=== PATIENT | male | born 1965 | race Caucasian/White ===

== ENCOUNTER 2016-11-14 12:55 | Outpatient (CLI) | payer OTHER, BC | END 2016-11-14 23:59 | DX: B19.20 Unspecified viral hepatitis C without hepatic coma (principal); Z79.899 Other long term (current) drug therapy; Z12.5 Encounter for screening for malignant neoplasm of prostate; R73.9 Hyperglycemia, unspecified ==

== ENCOUNTER 2016-12-06 09:28 | Day surgery (SDC) | payer OTHER, BC ==
[2016-12-06] MEDS ORDERED: LACTATED RINGERS 1,000 ML IV ONE (10:01)
[2016-12-06] MEDS ORDERED: fentaNYL 250 MCG/5 ML VIAL IVP ONE (11:32)
== END 2016-12-06 09:29 | disposition home or self-care (01) ==
DX: Z12.11 Encounter for screening for malignant neoplasm of colon (principal); K57.30 Diverticulosis of large intestine without perforation or abscess without bleeding; Z87.891 Personal history of nicotine dependence; R35.1 Nocturia; R39.11 Hesitancy of micturition
CPT/HCPCS: 45378; J3010; J7120

== ENCOUNTER 2016-12-07 20:28 | Emergency (ER) | payer OTHER, BC ==
[2016-12-07] MEDS ORDERED: ASPIRIN CHEW 81 MG TABLET ONE (21:20)
[2016-12-07] MEDS ORDERED: ASPIRIN CHEW 81 MG TABLET PO STA ×3 (21:20→21:21)
== END 2016-12-08 00:55 | disposition home or self-care (01) ==
DX: R07.89 Other chest pain (principal); K21.9 Gastro-esophageal reflux disease without esophagitis; G47.30 Sleep apnea, unspecified
CPT/HCPCS: 36415; 71020; 80048; 82550; 82553; 84484; 85025; 93005; 93010; 99284; A9270

== ENCOUNTER 2017-01-07 08:55 | Outpatient (CLI) | payer OTHER, BC | END 2017-01-07 08:56 | disposition home or self-care (01) | DX: Z53.9 Procedure and treatment not carried out, unspecified reason (principal) ==

== ENCOUNTER 2017-01-21 07:58 | Outpatient (CLI) | payer OTHER, BC | END 2017-01-21 07:59 | disposition home or self-care (01) | DX: K76.0 Fatty (change of) liver, not elsewhere classified (principal); B19.20 Unspecified viral hepatitis C without hepatic coma ==

== ENCOUNTER 2017-01-24 10:39 | Day surgery (SDC) | payer OTHER, BC ==
[2017-01-24] MEDS ORDERED: LACTATED RINGERS 1,000 ML IV ONE (10:48)
[2017-01-24] MEDS ORDERED: LIDO GARGLE 30 ML BOTTLE PO ONE (12:08)
[2017-01-24] MEDS ORDERED: MIDAZOLAM 2 MG/2 ML VIAL IVP ONE (12:10)
[2017-01-24] MEDS ORDERED: fentaNYL 250 MCG/5 ML VIAL IVP ONE (12:10)
== END 2017-01-24 10:40 | disposition home or self-care (01) ==
PROC: 0DB48ZZ Excision of Esophagogastric Junction, Via Natural or Artificial Opening Endoscopic (ICD-10-PCS; principal; 2017-01-24 11:45)
DX: K22.70 Barrett's esophagus without dysplasia (principal); K21.9 Gastro-esophageal reflux disease without esophagitis; K44.9 Diaphragmatic hernia without obstruction or gangrene; K57.32 Diverticulitis of large intestine without perforation or abscess without bleeding; Z82.49 Family history of ischemic heart disease and other diseases of the circulatory system; Z87.891 Personal history of nicotine dependence
CPT/HCPCS: 43239; A9270; J3010; J7120

== ENCOUNTER 2017-11-03 09:14 | Outpatient (CLI) | payer OTHER, BC | END 2017-11-03 09:15 | disposition home or self-care (01) | LOC: RT 09:14 | PROVIDERS: ATTEND Physician Assistant Medical | DX: R06.09 Other forms of dyspnea (principal) | CPT/HCPCS: 94060; 94729 ==

== ENCOUNTER 2017-11-11 13:18 | Outpatient (CLI) | payer OTHER, BC | END 2017-11-11 13:19 | disposition home or self-care (01) | LOC: DI 13:18 | PROVIDERS: ATTEND Physician Assistant Medical | DX: R55 Syncope and collapse (principal); R06.09 Other forms of dyspnea | CPT/HCPCS: 93306 ==